=== PATIENT | male | born 1940 | race Caucasian/White ===

== ENCOUNTER 2020-04-14 05:17 | Day surgery (SDC) | payer OTHER, MEDICARE ==
[2020-04-10 17:16] VITALS: BMI 28.1
[~2020-04-14 05:17] MED LIST: BSS (NA/CA/MG/K) BALANCED SALT SOLUTION OPHTH SOLN 15 ML BOTTLE OS ONE; CHONDROITIN SU A/HYALUR SOD 1 KIT IO ONE; EPINEPHrine/PF 1 MG/1 ML (1:1,000) AMPULE SQ ONE; LIDOCAINE HCL 1% PRESERVATIVE FREE - 30ML VIAL IO ONE; LIDOCAINE HCL 4% PRESERVE-FREE 5 ML AMP TP ONE; POVIDONE-IODINE 5% OPHTHALMIC PREP 30 ML SOLUTION OS ONE
[2020-04-14] MEDS ORDERED: TROPICAMIDE 1% OPHTH SOLN 15 ML BOTTLE ONE (07:06)
[2020-04-14] MEDS ORDERED: CYCLOPENTOLATE HCL 1% OPHTH SOLN 2 ML BOTTLE ONE (07:06)
[2020-04-14] MEDS ORDERED: CIPROFLOXACIN HCL 0.3% OPHTH 2.5ML BOTTLE ONE (07:06)
[2020-04-14] MEDS ORDERED: FLURBIPROFEN 0.03% OPHTH SOLN 2.5 ML BOTTLE ONE (07:07)
[2020-04-14] MEDS ORDERED: MIDAZOLAM HCL 2 MG/2 ML SINGLE DOSE VIAL ONE (07:58)
[2020-04-14] MEDS ORDERED: LIDOCAINE HCL 4% PRESERVE-FREE 5 ML AMP TP ONE (08:24)
[2020-04-14] MEDS ORDERED: POVIDONE-IODINE 5% OPHTHALMIC PREP 30 ML SOLUTION OS ONE (08:25)
[2020-04-14] MEDS ORDERED: LIDOCAINE HCL 1% PRESERVATIVE FREE - 30ML VIAL IO ONE (08:34)
[2020-04-14] MEDS ORDERED: CHONDROITIN SU A/HYALUR SOD 1 KIT IO ONE (08:34)
[2020-04-14] MEDS ORDERED: BSS (NA/CA/MG/K) BALANCED SALT SOLUTION OPHTH SOLN 15 ML BOTTLE OS ONE (08:34)
[2020-04-14] MEDS ORDERED: EPINEPHrine/PF 1 MG/1 ML (1:1,000) AMPULE SQ ONE (08:48)
[2020-04-14] MEDS ORDERED: TROPICAMIDE 1% OPHTH SOLN 15 ML BOTTLE OP SCH (09:00)
[2020-04-14] MEDS ORDERED: FLURBIPROFEN 0.03% OPHTH SOLN 2.5 ML BOTTLE OP SCH (09:00)
[2020-04-14] MEDS ORDERED: CIPROFLOXACIN HCL 0.3% OPHTH 2.5ML BOTTLE OP SCH (09:00)
[2020-04-14] MEDS ORDERED: PHENYLEPHRINE 2.5% OPHTH SOLN 15 ML BOTTLE OP SCH (09:00)
[2020-04-14] MEDS ORDERED: CYCLOPENTOLATE HCL 1% OPHTH SOLN 2 ML BOTTLE OP SCH (09:00)
[2020-04-14 10:01] VITALS: PULSE 50; TEMP 97.2
[2020-04-14 13:50] VITALS: BP 130/70
--- NOTE | 2020-04-22 17:27 | SPEC ---
DATE OF OPERATION: DATE OF DICTATION: 04/22/2020 PREOPERATIVE DIAGNOSIS: Cataract, left eye. POSTOPERATIVE DIAGNOSIS: Cataract, left eye. 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 OPERATION: Planned phacoemulsification with posterior chamber lens implantation, left eye. SURGEON: Lizbeth Bond MD. BOX [employer] WOOD: None. ANESTHESIA: Topical. COMPLICATIONS: None. PROCEDURE: The patient was taken to the operating room and anesthesia began with intravenous fluids and sedation. The patient then received topical anesthesia on the left eye. The patient was prepped and draped in the usual manner for sterile ophthalmic surgery. A self-sealing stab incision was made at the 9:00 and 5:00 positions. Viscoat was inserted into the anterior chamber. Using a 2.65 mm keratome, the anterior chamber was entered temporally. A 360-degree continuous capsulorrhexis was then performed. The nucleus was dislocated with hydrodissection. The nucleus was then removed from the eye in an uncomplicated fashion with the posterior capsule remaining intact. Irrigation and aspiration removed the remaining cortex from the eye. A posterior chamber lens was inserted into the bag and well centered. At this time, the remaining Provisc and Viscoat were removed from the eye. The wound was checked multiple times and nicely self-sealing. Stromal hydration was performed with balanced salt solution. The patient completed the procedure in an uncomplicated fashion and went to the ambulatory unit in stable condition. ADDENDUM: The patient had pupillary hooks placed with multiple small stab incisions to enlarge the pupil. The implantation, the lens was a standard lens 20.00 diopters. Patient went to the ambulatory unit in stable condition. LIZBETH BOND M.D. ANGELICA/[id number]
== END 2020-04-14 11:00 | disposition home or self-care (01) ==
LOC: JASU-SURG 05:17
PROVIDERS: ATTEND Ophthalmology
PROC: 08RK3JZ Replacement of Left Lens with Synthetic Substitute, Percutaneous Approach (ICD-10-PCS; principal; 2020-04-14 08:00)
DX: H26.9 Unspecified cataract (principal)

== ENCOUNTER 2024-08-13 10:58 | Inpatient (IN) | payer OTHER, MEDICARE ==
[2024-08-13 12:22] LABS: BASO % 0.6 % (0-2.0); HEMATOCRIT 40.3 % (35.4-49); HEMOGLOBIN 13.3 GM/dL (11.7-16.9); LYMPH % 12.7 % (8-40); MCH 29.6 pg (25.7-33.7); MEAN CELL VOLUME 89.7 fl (80-96); MEAN PLT VOLUME 8.7 fl (7.5-11.1); MONO % 7.9 % (3.8-10.2); NEUT % 76.8 % (42.8-82.8); PLATELET COUNT 158 10^3/uL (134-434); RBC 4.49 M/mm3 (4.00-5.60); RDW 14.1 % (11.9-15.9); WHITE BLOOD COUNT 6.4 K/mm3 (4.0-10.0)
[2024-08-13 12:52] LABS: ALBUMIN 4.2 g/dl (3.4-5.0); CALCIUM 9.6 mg/dL (8.5-10.1); MAGNESIUM 2.1 mg/dL (1.8-2.4)
[2024-08-13 12:55] LABS: CREATININE 1.1 mg/dL (0.55-1.3)
[2024-08-13 12:57] LABS: BILIRUBIN,TOTAL 1.2 mg/dL (0.2-1); TOT PROT 8.5 g/dl (6.4-8.2)
[2024-08-13 13:05] LABS: EPI CELLS 8 /uL (0-25.1); HYALINE CASTS 0 /uL (0-3.1); PH,URINE 7.5 (5.0-8.0); URINE APPEARANCE CLEAR; URINE BACTERIA 7 /uL (0-1359); URINE BILIRUBIN NEGATIVE (NEGATIVE); URINE COLOR YELLOW; URINE GLUCOSE (UA) NEGATIVE (NEGATIVE); URINE KETONE NEGATIVE (NEGATIVE); URINE LEUK ESTERASE 1+ (NEGATIVE); URINE NITRITE NEGATIVE (NEGATIVE); URINE PROTEIN TRACE (NEGATIVE); URINE RBC 21 /uL (0-23.9); URINE UROBILINOGEN 0.2 mg/dL (0.2-1.0); URINE WBC 51 /uL (0-25.8)
[2024-08-13] MEDS ORDERED: CEFTRIAXONE 1 G/50 ML PREMIX 50 ML IVPB ONE (15:57)
[2024-08-13] MEDS: CEFTRIAXONE 1 GM in DEXTROSE 5%-WATER - 100 ML IVPB ONE (16:00)
[2024-08-13] MEDS ORDERED: ATORVASTATIN CA 80 MG TABLET (FP) ONE (22:20)
[2024-08-13] MEDS: ATORVASTATIN CA 80 MG TABLET (FP) PO SCH (22:31)
[2024-08-14 01:58] VITALS: BMI 26.7
[2024-08-14] MEDS: LOSARTAN POTASSIUM 50 MG TABLET PO SCH (09:25)
[2024-08-14] MEDS: TAMSULOSIN HCL 0.4 MG CAP PO SCH (09:25)
[2024-08-14] MEDS: CLOPIDOGREL BISULFATE 75 MG TABLET (FP) PO SCH (09:26)
[2024-08-14] MEDS: ASPIRIN 81 MG CHEWABLE TABLETS PO SCH (09:26)
[2024-08-14 10:04] LABS: BASO % 0.7 % (0-2.0); EOS % 3.7 % (0-4.5); HEMATOCRIT 37.6 % (35.4-49); HEMOGLOBIN 12.3 GM/dL (11.7-16.9); LYMPH % 13.1 % (8-40); MCH 29.5 pg (25.7-33.7); MCHC 32.8 g/dl (32.0-35.9); MEAN CELL VOLUME 90.1 fl (80-96); MEAN PLT VOLUME 8.9 fl (7.5-11.1); MONO % 8.2 % (3.8-10.2); NEUT % 74.3 % (42.8-82.8); PLATELET COUNT 162 10^3/uL (134-434); RBC 4.17 M/mm3 (4.00-5.60); RDW 14.1 % (11.9-15.9); WHITE BLOOD COUNT 6.1 K/mm3 (4.0-10.0)
[2024-08-14 10:29] LABS: POTASSIUM 4.3 mmol/L (3.5-5.1)
[2024-08-14 10:32] LABS: CALCIUM 9.2 mg/dL (8.5-10.1)
[2024-08-14 10:33] LABS: ALBUMIN 3.6 g/dl (3.4-5.0); BLOOD UREA NITROGEN 22.6 mg/dL (7-18); MAGNESIUM 1.9 mg/dL (1.8-2.4)
[2024-08-14 10:38] LABS: BILIRUBIN,TOTAL 1.2 mg/dL (0.2-1); TOT PROT 7.3 g/dl (6.4-8.2)
[2024-08-14] MEDS: SOLIFENACIN SUCCINATE 5 MG TAB PO SCH (12:03)
[2024-08-14] MEDS: CILOSTAZOL 100 MG TABLET PO SCH (21:04)
[2024-08-14] MEDS ORDERED: CILOSTAZOL 50 MG TABLET PO SCH (22:00)
[2024-08-15 11:42] VITALS: BP 139/67; PULSE 73; RESP 16; TEMP 97.5
== END 2024-08-15 13:07 | disposition home or self-care (01) | DRG 149 ==
LOC: JER 10:58 → JERBED 15:17 → J4S 23:14 → OBSVTOIN 08-14 11:14
PROVIDERS: ADMIT Internal Medicine; ATTEND Internal Medicine
DX: R42 Dizziness and giddiness (principal); N39.0 Urinary tract infection, site not specified; I25.10 Atherosclerotic heart disease of native coronary artery without angina pectoris; I10 Essential (primary) hypertension; E78.5 Hyperlipidemia, unspecified; I73.9 Peripheral vascular disease, unspecified; Z95.1 Presence of aortocoronary bypass graft; M79.605 Pain in left leg
CPT/HCPCS: 36415; 70450-TC; 71046-TC-FY; 80053; 81003; 82550; 82553; 83735; 84443; 84484; 85025; 87086; 93005; 93010; 93306-TC; 93880-TC; 93922; 93925-TC; 93970-TC; 93978; 99285-25; G0378